=== PATIENT | male | born 1955 | race American Indian/Alaskan Native ===

== ENCOUNTER 2018-08-03 17:07 | Emergency (ER) | payer OTHER ==
[~2018-08-03] VITALS: Ht 167.6 cm; Wt 68.0 kg
[2018-08-03 17:45] LABS: BASOPHILS ABSOLUTE AUTO 0.07 K/mm3 (0.00-0.23); BASOPHILS PERCENT AUTO 1 % (0-2); EOSINOPHILS ABSOLUTE AUTO 0.08 K/mm3 (0.00-0.68); EOSINOPHILS PERCENT AUTO 1 % (0-6); Hematocrit 36.6 % (37.0-53.0); Hemoglobin 12.1 g/dL (13.5-17.5); IMMATURE GRAN PERCENT AUTO 1 % (0-1); LYMPHOCYTES ABSOLUTE AUTO 1.53 K/mm3 (0.84-5.20); LYMPHOCYTES PERCENT AUTO 12 % (21-46); MONOCYTES PERCENT AUTO 11 % (4-13); Mean Corpuscular HGB 31.3 pg (26.0-34.0); Mean Corpuscular HGB Conc 33.1 g/dL (31.5-36.5); Mean Corpuscular Volume 95 fL (80-100); Mean Platelet Volume 12.1 fL (9.1-12.4); NEUTROPHILS ABSOLUTE AUTO 9.92 K/mm3 (1.96-9.15); NEUTROPHILS PERCENT AUTO 75 % (41-73); Platelet Count 206 K/mm3 (150-400); RDW Coefficient Variation 14.4 % (11.7-14.2); RDW Standard Deviation 49.7 fL (35.1-46.3); Red Blood Cell Count 3.86 M/mm3 (4.30-5.90)
[2018-08-03 17:55] LABS: Calcium, Ionized (POC) 1.08 mmol/L (1.10-1.46); Chloride (POC) 99 mmol/L (98-108); Creatinine (POC) 0.9 mg/dL (0.8-1.3); Glucose (ISTAT POC) 105 mg/dL (70-99); Hemoglobin (POC) 11.6 g/dL (13.5-17.5); Potassium (POC) 4.5 mmol/L (3.5-5.5); Sodium (POC) 131 mmol/L (135-148); Total CO2 (POC) 21 mmol/L (21-32)
[2018-08-03 18:04] LABS: Alanine Aminotransfer (ALT/SGP 44 U/L (12-78); Albumin, Blood 2.6 g/dL (3.4-5.0); Albumin/Globulin Ratio 0.6 (0.8-1.8); Alk Phos 94 U/L (50-136); Anion Gap 11 mmol/L (6-16); Aspartate Aminotrans (AST/SGOT 56 U/L (12-37); Bilirubin, Total 0.5 mg/dL (0.1-1.0); Blood Urea Nitrogen 32 mg/dL (8-24); Bun/Creatinine Ratio 36.3 (12.0-20.0); CO2, Blood 19 mmol/L (21-32); Calcium, Blood 8.3 mg/dL (8.5-10.1); Chloride, Blood 100 mmol/L (98-108); Creatinine, Blood 0.88 mg/dL (0.60-1.20); Globulin, Blood 4.5 g/dL (2.2-4.0); Glomerular Filtration Rate >60 (60-); Glucose, Blood 106 mg/dL (70-99); Potassium, Blood 3.9 mmol/L (3.5-5.5); Sodium, Blood 130 mmol/L (136-145); Total Protein, Blood 7.1 g/dL (6.4-8.2)
[2018-08-03 18:38] LABS: International Normalized Ratio 0.94
== END 2018-08-03 18:45 | disposition short-term general hospital (02) ==
LOC: ER 17:07
PROVIDERS: Emergency Medicine; Physician Assistant
DX: I21.3 ST elevation (STEMI) myocardial infarction of unspecified site (principal); F17.200 Nicotine dependence, unspecified, uncomplicated; Z88.6 Allergy status to analgesic agent
CPT/HCPCS: 36415; 80047; 80053; 82272; 83690; 84484; 85014; 85025; 85610; 85730; 93005; 93010; 96361; 96374; 96375; 96376; 99285-25; J1644; J2270; J2405; J7120

== ENCOUNTER 2018-12-01 13:45 | Emergency (ER) | payer OTHER ==
[~2018-12-01] VITALS: Ht 165.1 cm; Wt 66.2 kg
[2018-12-01 14:28] LABS: BASOPHILS ABSOLUTE AUTO 0.06 K/mm3 (0.00-0.23); BASOPHILS PERCENT AUTO 1 % (0-2); EOSINOPHILS ABSOLUTE AUTO 0.09 K/mm3 (0.00-0.68); EOSINOPHILS PERCENT AUTO 1 % (0-6); Hematocrit 41.1 % (37.0-53.0); Hemoglobin 13.7 g/dL (13.5-17.5); IMMATURE GRAN ABSOLUTE AUTO 0.04 K/mm3 (0.00-0.10); IMMATURE GRAN PERCENT AUTO 0 % (0-1); LYMPHOCYTES ABSOLUTE AUTO 1.22 K/mm3 (0.84-5.20); LYMPHOCYTES PERCENT AUTO 12 % (21-46); MONOCYTES ABSOLUTE AUTO 0.76 K/mm3 (0.16-1.47); MONOCYTES PERCENT AUTO 7 % (4-13); Mean Corpuscular HGB 31.8 pg (26.0-34.0); Mean Corpuscular HGB Conc 33.3 g/dL (31.5-36.5); Mean Corpuscular Volume 95 fL (80-100); Mean Platelet Volume 12.2 fL (9.1-12.4); NEUTROPHILS ABSOLUTE AUTO 8.35 K/mm3 (1.96-9.15); NEUTROPHILS PERCENT AUTO 79 % (41-73); Platelet Count 205 K/mm3 (150-400); RDW Coefficient Variation 16.6 % (11.7-14.2); RDW Standard Deviation 57.9 fL (35.1-46.3); Red Blood Cell Count 4.31 M/mm3 (4.30-5.90); White Blood Cell Count 10.52 K/mm3 (4.00-11.30)
[2018-12-01] MEDS ORDERED: Hydrocodone-Ap1 EA23 PO (14:34)
[2018-12-01 15:21] LABS: Albumin, Blood 3.5 g/dL (3.4-5.0); Bilirubin, Total 0.7 mg/dL (0.1-1.0); Bun/Creatinine Ratio 19.6 (12.0-20.0); Creatinine, Blood 1.48 mg/dL (0.60-1.20); Globulin, Blood 3.5 g/dL (2.2-4.0); Potassium, Blood 4.6 mmol/L (3.5-5.5); Troponin I 0.029 ng/mL (0.000-0.040)
[2018-12-01] MEDS ORDERED: Zithromax250 MG PO (15:56)
== END 2018-12-01 16:27 | disposition home or self-care (01) ==
LOC: ER 13:45
PROVIDERS: Physician Assistant
DX: J18.1 Lobar pneumonia, unspecified organism (principal); K29.70 Gastritis, unspecified, without bleeding; Z88.6 Allergy status to analgesic agent; Z79.891 Long term (current) use of opiate analgesic; I25.2 Old myocardial infarction; F17.200 Nicotine dependence, unspecified, uncomplicated
CPT/HCPCS: 71046; 80053; 83605; 83690; 83880; 84484; 85025; 93005; 93010; 99285-25

== ENCOUNTER → 2019-06-07 | Outpatient (CLI) | payer OTHER ==
[~2019-06-07] MED LIST: Hydrocodone-Ap1 EA23 PO; Zithromax250 MG PO
[2019-06-10 13:35] LABS: Stool Occult Bld Immuno 1 Negative (NEGATIVE)
== END | disposition home or self-care (01) ==
LOC: LAB 17:49 → LAB SHORT 17:49
PROVIDERS: Family Medicine
DX: Z12.11 Encounter for screening for malignant neoplasm of colon (principal)
CPT/HCPCS: G0328

== ENCOUNTER 2020-05-31 18:01 | Emergency (ER) | payer OTHER ==
[~2020-05-31] VITALS: Ht 167.6 cm; Wt 63.5 kg
[2020-05-31] MEDS ORDERED: ALLO100 PO (18:21)
[2020-05-31] MEDS ORDERED: CLOP75 PO (18:22)
[2020-05-31] MEDS ORDERED: ATOR20 PO (18:22)
[2020-05-31] MEDS ORDERED: CARV3.125 PO (18:22)
[2020-05-31] MEDS ORDERED: INDO50 PO (18:23)
[2020-05-31] MEDS ORDERED: DICLOFENAC SOD100 GM TP (18:23)
[2020-05-31] MEDS ORDERED: GABA300 PO (18:23)
[2020-05-31] MEDS ORDERED: TORSE20 PO (18:24)
[2020-05-31] MEDS ORDERED: TRAZ50 PO (18:24)
[2020-05-31] MEDS ORDERED: TIOT18 INH (18:24)
[2020-05-31] MEDS ORDERED: NITR.4SL SL (18:24)
[2020-05-31 18:39] LABS: BASOPHILS ABSOLUTE AUTO 0.06 K/mm3 (0.00-0.23); BASOPHILS PERCENT AUTO 1 % (0-2); EOSINOPHILS ABSOLUTE AUTO 0.12 K/mm3 (0.00-0.68); EOSINOPHILS PERCENT AUTO 1 % (0-6); Hematocrit 43.4 % (37.0-53.0); Hemoglobin 14.5 g/dL (13.5-17.5); IMMATURE GRAN ABSOLUTE AUTO 0.05 K/mm3 (0.00-0.10); IMMATURE GRAN PERCENT AUTO 1 % (0-1); LYMPHOCYTES ABSOLUTE AUTO 1.07 K/mm3 (0.84-5.20); LYMPHOCYTES PERCENT AUTO 12 % (21-46); MONOCYTES PERCENT AUTO 9 % (4-13); Mean Corpuscular HGB 32.8 pg (26.0-34.0); Mean Corpuscular HGB Conc 33.4 g/dL (31.5-36.5); Mean Corpuscular Volume 98 fL (80-100); NEUTROPHILS ABSOLUTE AUTO 7.07 K/mm3 (1.96-9.15); NEUTROPHILS PERCENT AUTO 77 % (41-73); Platelet Count 103 K/mm3 (150-400); RDW Standard Deviation 60.5 fL (35.1-46.3); Red Blood Cell Count 4.42 M/mm3 (4.30-5.90); White Blood Cell Count 9.17 K/mm3 (4.00-11.30)
[2020-05-31 18:52] LABS: Albumin, Blood 4.1 g/dL (3.4-5.0); Albumin/Globulin Ratio 1.4 (0.8-1.8); Bilirubin, Total 1.9 mg/dL (0.1-1.0); Bun/Creatinine Ratio 43.2 (12.0-20.0); Calcium, Blood 8.8 mg/dL (8.5-10.1); Creatinine, Blood 1.39 mg/dL (0.60-1.20); Potassium, Blood 4.6 mmol/L (3.5-5.5); Total Protein, Blood 7.1 g/dL (6.4-8.2); Troponin I 0.029 ng/mL (0.000-0.040)
[2020-05-31] MEDS ORDERED: ONDA4ODT MM (20:17)
[2020-05-31] MEDS ORDERED: MECL25 PO (20:17)
== END 2020-05-31 20:33 | disposition home or self-care (01) ==
LOC: ER 18:01
PROVIDERS: Emergency Medicine
DX: H81.399 Other peripheral vertigo, unspecified ear (principal); H81.10 Benign paroxysmal vertigo, unspecified ear; I25.2 Old myocardial infarction; Z88.2 Allergy status to sulfonamides; Z95.5 Presence of coronary angioplasty implant and graft; Z88.6 Allergy status to analgesic agent
CPT/HCPCS: 70450; 80053; 84484; 85025; 93005; 93010; 96374; 99284-25; A9270; J2405

== ENCOUNTER 2021-04-05 18:50 | Inpatient (IN) | payer OTHER ==
[~2021-04-05] VITALS: Ht 162.6 cm; Wt 58.0 kg
[~2021-04-05 18:50] MED LIST changes: -ASCO500 PO; -ATOR40TA PO; -AZIT500 PO; -Acetaminophen650 M1 PO; -BISA10S PR; -CEFD300 PO; -COLCHICINE0.6 MG PO; -Carvedilol6.25 MG PO; -DOCU100 PO; -ENTRESTO 24 MG1 EAC3 PO; -ENTRESTO 24 MG1 EACH PO; -EUTHYROX125 MC1 PO; -FAMO20 PO; -FERSU300 PO; -FURO40 PO; -GUAI600T33 PO; -LACT PO; -LISI20 PO; -MIRALAX17 GM PO; -Nicoderm Cq1 EACH TOP; -PLAVIX75 MG PO; -PROAIR DIGIHAL90 MCG INH; -PROM25 PO; -TAMSULOSIN HCL0.4 M1 PO; -TUSSIN MUC100 MG/5 M PO
[2021-04-05] MEDS ORDERED: COLCHICINE0.6 MG PO (19:17)
[2021-04-05] MEDS ORDERED: FURO40 PO (19:18)
[2021-04-05] MEDS ORDERED: GABA300 PO (19:18)
[2021-04-05] MEDS ORDERED: FERSU300 PO (19:18)
[2021-04-05] MEDS ORDERED: LISI20 PO (19:19)
[2021-04-05] MEDS ORDERED: Nicoderm Cq1 EACH TOP (19:20)
[2021-04-05] MEDS ORDERED: PROAIR DIGIHAL90 MCG INH (19:20)
[2021-04-05] MEDS ORDERED: ENTRESTO 24 MG1 EAC3 PO (19:22)
[2021-04-05 19:28] LABS: BASOPHILS ABSOLUTE AUTO 0.04 K/mm3 (0.00-0.23); BASOPHILS PERCENT AUTO 0 % (0-2); EOSINOPHILS ABSOLUTE AUTO 0.04 K/mm3 (0.00-0.68); EOSINOPHILS PERCENT AUTO 0 % (0-6); Hematocrit 22.5 % (37.0-53.0); Hemoglobin 7.9 g/dL (13.5-17.5); IMMATURE GRAN ABSOLUTE AUTO 0.06 K/mm3 (0.00-0.10); IMMATURE GRAN PERCENT AUTO 0 % (0-1); LYMPHOCYTES ABSOLUTE AUTO 0.65 K/mm3 (0.84-5.20); LYMPHOCYTES PERCENT AUTO 5 % (21-46); MONOCYTES PERCENT AUTO 8 % (4-13); Mean Corpuscular HGB 33.2 pg (26.0-34.0); Mean Corpuscular HGB Conc 35.1 g/dL (31.5-36.5); Mean Corpuscular Volume 95 fL (80-100); Mean Platelet Volume 11.9 fL (9.1-12.4); NEUTROPHILS ABSOLUTE AUTO 12.55 K/mm3 (1.96-9.15); NEUTROPHILS PERCENT AUTO 86 % (41-73); Platelet Count 298 K/mm3 (150-400); RDW Standard Deviation 54.5 fL (35.1-46.3); Red Blood Cell Count 2.38 M/mm3 (4.30-5.90); White Blood Cell Count 14.54 K/mm3 (4.00-11.30)
[2021-04-05 19:50] LABS: Alanine Aminotransfer (ALT/SGP 79 U/L (12-78); Albumin/Globulin Ratio 0.4 (0.8-1.8); Alk Phos 154 U/L (50-136); Anion Gap 9 mmol/L (6-16); Aspartate Aminotrans (AST/SGOT 81 U/L (12-37); Bilirubin, Total 0.6 mg/dL (0.1-1.0); Blood Urea Nitrogen 69 mg/dL (8-24); Bun/Creatinine Ratio 41.3 (12.0-20.0); CO2, Blood 23 mmol/L (21-32); Calcium, Blood 8.8 mg/dL (8.5-10.1); Chloride, Blood 100 mmol/L (98-108); Creatinine, Blood 1.67 mg/dL (0.60-1.20); Globulin, Blood 4.6 g/dL (2.2-4.0); Glomerular Filtration Rate 42 (60-); Glucose, Blood 104 mg/dL (70-99); Potassium, Blood 4.9 mmol/L (3.5-5.5); Sodium, Blood 132 mmol/L (136-145); Total Protein, Blood 6.6 g/dL (6.4-8.2); Troponin I <0.015 ng/mL (0.000-0.040)
[2021-04-05 21:57] LABS: Uric Acid, Blood 5.1 mg/dL (3.5-7.2)
[2021-04-05 22:47] LABS: Influenza A, PCR NEGATIVE (NEGATIVE); Influenza B, PCR NEGATIVE (NEGATIVE); Resp Syncytial Virus, PCR NEGATIVE (NEGATIVE); SARS-Cov-2 (COVID-19) PCR, MMC NEGATIVE (NEGATIVE)
[2021-04-05] MEDS ORDERED: PROM25 PO (23:35)
[2021-04-05] MEDS ORDERED: TAMSULOSIN HCL0.4 M1 PO (23:54)
[2021-04-05] MEDS ORDERED: PLAVIX75 MG PO (23:54)
[2021-04-05] MEDS ORDERED: EUTHYROX125 MC1 PO (23:55)
[2021-04-06 04:50] LABS: BASOPHILS ABSOLUTE AUTO 0.05 K/mm3 (0.00-0.23); BASOPHILS PERCENT AUTO 0 % (0-2); EOSINOPHILS ABSOLUTE AUTO 0.08 K/mm3 (0.00-0.68); EOSINOPHILS PERCENT AUTO 1 % (0-6); Hematocrit 20.3 % (37.0-53.0); Hemoglobin 6.9 g/dL (13.5-17.5); IMMATURE GRAN ABSOLUTE AUTO 0.04 K/mm3 (0.00-0.10); IMMATURE GRAN PERCENT AUTO 0 % (0-1); LYMPHOCYTES ABSOLUTE AUTO 0.69 K/mm3 (0.84-5.20); LYMPHOCYTES PERCENT AUTO 6 % (21-46); MONOCYTES ABSOLUTE AUTO 1.17 K/mm3 (0.16-1.47); MONOCYTES PERCENT AUTO 10 % (4-13); Mean Corpuscular HGB 32.2 pg (26.0-34.0); Mean Corpuscular Volume 95 fL (80-100); Mean Platelet Volume 12.4 fL (9.1-12.4); NEUTROPHILS ABSOLUTE AUTO 9.46 K/mm3 (1.96-9.15); NEUTROPHILS PERCENT AUTO 82 % (41-73); Platelet Count 269 K/mm3 (150-400); RDW Coefficient Variation 15.9 % (11.7-14.2); RDW Standard Deviation 54.4 fL (35.1-46.3); Red Blood Cell Count 2.14 M/mm3 (4.30-5.90); White Blood Cell Count 11.49 K/mm3 (4.00-11.30)
[2021-04-06 05:50] LABS: Albumin, Blood 1.7 g/dL (3.4-5.0); Albumin/Globulin Ratio 0.4 (0.8-1.8); Bilirubin, Total 0.5 mg/dL (0.1-1.0); Calcium, Blood 8.3 mg/dL (8.5-10.1); Creatinine, Blood 1.42 mg/dL (0.60-1.20); Globulin, Blood 4.1 g/dL (2.2-4.0); Magnesium, Blood 2.3 mg/dL (1.6-2.4); Potassium, Blood 4.5 mmol/L (3.5-5.5); Total Protein, Blood 5.8 g/dL (6.4-8.2); Troponin I 0.022 ng/mL (0.000-0.040)
--- NOTE | 2021-04-06 06:11 | NUR ---
SHIFT SUMMARYU PATIENT ADMITTED TO FLOOR AT APROXIMETLY 2245 AND FOUND TO BE A&OX4. SOFT BP SOMEWHAT IMPROVING WITH BOLUS AND MAP HAS STAYED ABOVE 60 SINCE ADMIT. NSR IN THE 80'S ON TELE. RA SATING MID 90'S. PRODUCTIVE COUGH AT TIMES. SOME DIZZINESS UPON STANDING AND BIGGER MOVEMENTS IN BED SO ENCOURAGED PATIENT TO TAKE IT SLOW AND CALL RN BEFORE GETTING UP. POOR APPETITE. VOIDING WELL PER URINAL. IV FLUIDS RUNNING PER ORDER AFTER BOLUS COMPLETED. HGB OF 6.9 THIS AM AND MADE AWARE. ONE PRBC ORDERED AND BEING PREPPED FOR DAYSHIFT. NO SIGNS OF BLEEDING. UP WITH ONE ASSIST. NO ACUTE CONCERNS AT THIS TIME. WILL CONTINUE TO MONITOR UNITL REPORT GIVEN TO DAYSHIFT RN.
--- NOTE | 2021-04-06 18:06 | NUR ---
VSS. AFEBRILE. NO C/O PAIN. AUO. NO BM. POOR APPETITE NOTED. 1 UNIT PRBC TRANSFUSED. IVF MAINTAINED. FREQUENT ROUNDS TO ENSURE PT SAFETY. PT IN NO APPARENT DISTRESS AT THIS TIME. WILL CONTINUE TO MONITOR UNTIL TRANSFER OF CARE TO ONCOMING RN.
[2021-04-07 03:54] LABS: Hematocrit 24.2 % (37.0-53.0); Hemoglobin 8.3 g/dL (13.5-17.5); Mean Corpuscular HGB 32.4 pg (26.0-34.0); Mean Corpuscular HGB Conc 34.3 g/dL (31.5-36.5); Mean Corpuscular Volume 95 fL (80-100); Mean Platelet Volume 12.2 fL (9.1-12.4); Platelet Count 292 K/mm3 (150-400); RDW Coefficient Variation 15.8 % (11.7-14.2); RDW Standard Deviation 53.5 fL (35.1-46.3); Red Blood Cell Count 2.56 M/mm3 (4.30-5.90); White Blood Cell Count 11.73 K/mm3 (4.00-11.30)
[2021-04-07 04:15] LABS: Albumin, Blood 1.8 g/dL (3.4-5.0); Anion Gap 9 mmol/L (6-16); Blood Urea Nitrogen 35 mg/dL (8-24); Bun/Creatinine Ratio 31.5 (12.0-20.0); CO2, Blood 22 mmol/L (21-32); Calcium, Blood 8.9 mg/dL (8.5-10.1); Chloride, Blood 110 mmol/L (98-108); Creatinine, Blood 1.11 mg/dL (0.60-1.20); Glomerular Filtration Rate >60 (60-); Glucose, Blood 83 mg/dL (70-99); Phosphorus, Blood 3.6 mg/dL (2.5-4.9); Potassium, Blood 4.6 mmol/L (3.5-5.5); Sodium, Blood 141 mmol/L (136-145)
--- NOTE | 2021-04-07 05:48 | NUR ---
SHIFT SUMMARY PATIENT IS A PLESANT MAN WHO IS A&OX4, FOLLOWS COMMANDS, WITH SOME GENERALIZED WEAKNESS. VSS. NSR ON THE MONITOR. ON RA SATING LOW 90'S. PRODUCTIVE COUGH IMPROVING. TOLERATING CARDIAC DIET BUT POOR APPETITE. VOIDING WELL PER URINAL. ENCOURAGE ORAL INTAKE.IV ABX RUNNING PER ORDER. SBA IN ROOM. NO ACUTE CONCERNS AT THIS TIME. WILL CONTINUE TO MONITOR UNTIL REPORT GIVEN TO DAYSHIFT.
--- NOTE | 2021-04-07 18:33 | NUR ---
VSS. AFEBRILE. AUO. NO BM. CONTINUES TO HAVE POOR APPETITE. UP IN CHAIR X4HRS, UTILIZED FWW, GAIT BELT WITH 1 PERSON MIN ASSIST. FREQUENT ROUNDS TO ENSURE PT SAFETY. PT IN NO APPARENT DISTRESS AT THIS TIME. WILL CONTINUE TO MONITOR UNTIL TRANSFER OF CARE TO ONCOMING RN.
--- NOTE | 2021-04-07 18:36 | NUR ---
STATUS CHANGE: PT C/O SUDDEN ONSET CP WITH R ARM PAIN. EKG COMPLETED STAT. MD NOTIFIED, ORDERED TROP I STAT AND NITRO PRN. NITRO X1, PT STATED RESOLUTION OF CP. PT ALSO GIVEN TYLENOL X1 D/T R ARM PAIN- PT STATED " I WAS TRYING NOT TO MOVE MY R ARM, IT MAY BE STIFF AND COULD BE CAUSING ALL THIS." VSS.
--- NOTE | 2021-04-07 19:50 | NUR ---
ASSUMED CARE OF PATIENT AT 1900. PATIENT A/OX4. MAINTAINING ABOVE 90% ON RA BUT RESPIRATORY RATE UP TO 26. ADDED 2L NC PRN, SATS INCREASED TO 94% AND RR DOWN TO 18. PATIENT MAINLY SOB WITH ANY ACTIVITY LIKE TALKING, MOVING TO DRINK WATER ETC... NSR ON MONITOR. NO C/O CP. WILL UPDATE THIS NOTE IF ANY CHANGES OCCUR.
[2021-04-08 04:13] LABS: BASOPHILS ABSOLUTE AUTO 0.07 K/mm3 (0.00-0.23); BASOPHILS PERCENT AUTO 1 % (0-2); EOSINOPHILS ABSOLUTE AUTO 0.02 K/mm3 (0.00-0.68); EOSINOPHILS PERCENT AUTO 0 % (0-6); Hematocrit 24.1 % (37.0-53.0); Hemoglobin 8.2 g/dL (13.5-17.5); IMMATURE GRAN ABSOLUTE AUTO 0.05 K/mm3 (0.00-0.10); IMMATURE GRAN PERCENT AUTO 0 % (0-1); LYMPHOCYTES ABSOLUTE AUTO 0.72 K/mm3 (0.84-5.20); LYMPHOCYTES PERCENT AUTO 6 % (21-46); MONOCYTES ABSOLUTE AUTO 0.84 K/mm3 (0.16-1.47); MONOCYTES PERCENT AUTO 6 % (4-13); Mean Corpuscular HGB 32.7 pg (26.0-34.0); Mean Corpuscular Volume 96 fL (80-100); NEUTROPHILS ABSOLUTE AUTO 11.42 K/mm3 (1.96-9.15); NEUTROPHILS PERCENT AUTO 87 % (41-73); Platelet Count 305 K/mm3 (150-400); RDW Coefficient Variation 15.9 % (11.7-14.2); RDW Standard Deviation 55.5 fL (35.1-46.3); Red Blood Cell Count 2.51 M/mm3 (4.30-5.90); White Blood Cell Count 13.12 K/mm3 (4.00-11.30)
[2021-04-08 04:42] LABS: Albumin, Blood 1.9 g/dL (3.4-5.0); Albumin/Globulin Ratio 0.4 (0.8-1.8); Bilirubin, Direct 0.4 mg/dL (0.0-0.3); Bilirubin, Indirect 0.3 mg/dL (0.1-0.7); Bilirubin, Total 0.7 mg/dL (0.1-1.0); Bun/Creatinine Ratio 34.1 (12.0-20.0); C-REACTIVE PROTEIN, EXT RANGE 16.8 mg/dL (0.000-0.300); Calcium, Blood 8.7 mg/dL (8.5-10.1); Creatinine, Blood 1.23 mg/dL (0.60-1.20); Globulin, Blood 4.3 g/dL (2.2-4.0); Magnesium, Blood 2.4 mg/dL (1.6-2.4); Phosphorus, Blood 5.5 mg/dL (2.5-4.9); Potassium, Blood 4.7 mmol/L (3.5-5.5); Total Protein, Blood 6.2 g/dL (6.4-8.2)
[2021-04-08 12:36] LABS: BASOPHILS ABSOLUTE AUTO 0.06 K/mm3 (0.00-0.23); BASOPHILS PERCENT AUTO 1 % (0-2); EOSINOPHILS ABSOLUTE AUTO 0.09 K/mm3 (0.00-0.68); EOSINOPHILS PERCENT AUTO 1 % (0-6); Hematocrit 24.7 % (37.0-53.0); Hemoglobin 8.4 g/dL (13.5-17.5); IMMATURE GRAN ABSOLUTE AUTO 0.07 K/mm3 (0.00-0.10); IMMATURE GRAN PERCENT AUTO 1 % (0-1); LYMPHOCYTES ABSOLUTE AUTO 0.73 K/mm3 (0.84-5.20); LYMPHOCYTES PERCENT AUTO 6 % (21-46); MONOCYTES ABSOLUTE AUTO 0.86 K/mm3 (0.16-1.47); MONOCYTES PERCENT AUTO 8 % (4-13); Mean Corpuscular HGB 32.6 pg (26.0-34.0); Mean Corpuscular Volume 96 fL (80-100); NEUTROPHILS ABSOLUTE AUTO 9.71 K/mm3 (1.96-9.15); NEUTROPHILS PERCENT AUTO 84 % (41-73); Platelet Count 320 K/mm3 (150-400); RDW Standard Deviation 55.1 fL (35.1-46.3); Red Blood Cell Count 2.58 M/mm3 (4.30-5.90); White Blood Cell Count 11.52 K/mm3 (4.00-11.30)
[2021-04-08 13:03] LABS: Alanine Aminotransfer (ALT/SGP 36 U/L (12-78); Albumin, Blood 1.8 g/dL (3.4-5.0); Albumin/Globulin Ratio 0.4 (0.8-1.8); Alk Phos 125 U/L (50-136); Anion Gap 9 mmol/L (6-16); Aspartate Aminotrans (AST/SGOT 21 U/L (12-37); Bilirubin, Total 0.5 mg/dL (0.1-1.0); Blood Urea Nitrogen 42 mg/dL (8-24); Bun/Creatinine Ratio 38.2 (12.0-20.0); CO2, Blood 20 mmol/L (21-32); Calcium, Blood 8.8 mg/dL (8.5-10.1); Chloride, Blood 110 mmol/L (98-108); Globulin, Blood 4.4 g/dL (2.2-4.0); Glomerular Filtration Rate >60 (60-); Glucose, Blood 111 mg/dL (70-99); Potassium, Blood 4.7 mmol/L (3.5-5.5); Sodium, Blood 139 mmol/L (136-145); Total Protein, Blood 6.2 g/dL (6.4-8.2); Troponin I 0.166 ng/mL (0.000-0.040)
--- NOTE | 2021-04-08 18:39 | NUR ---
PT BP HAS IMPROVED DURING THIS SHIFT, VSS. PT REPORTS GOO IMPROVEMENT OF BREATHING. PT ABLE TO REPOSITION SELF IN BED W/O DIFF. PT UP WITH AIDES TODAY FOR SMALL WALK IN ROOM. 125ML/HR NS INFUSING AT THIS TIME. PT WITH GOOD APPETITE. PT DENIES CP OR SOB. REAMINS ON RA
--- NOTE | 2021-04-08 22:00 | NUR ---
ASSUMED CARE OF PATIENT AT 1900. A/OX3-4. MAINTAINING BETWEEN 90-95% ON RA, DIM T/O. DYSPNEA WITH ANY KIND OF EXERTION, WHERE RR INCREASES TO 28. PRODUCTIVE COUGH PRODUCING MODERATE AMOUNTS OF THICK MEMBRENO SPUTUM. WITH TAKING HIS ORAL MEDICATION, WITH EACH DRINK HE NEEDS A FEW MINUTES TO RECOVER AND CAN BE FOUND TRIPODDING IN BED TO CATCH HIS BREATH. WILL UPDATE THIS WITH ANY CHANGES THIS SHIFT.
[2021-04-09 03:45] LABS: BASOPHILS ABSOLUTE AUTO 0.07 K/mm3 (0.00-0.23); BASOPHILS PERCENT AUTO 1 % (0-2); EOSINOPHILS ABSOLUTE AUTO 0.06 K/mm3 (0.00-0.68); EOSINOPHILS PERCENT AUTO 1 % (0-6); Hematocrit 22.8 % (37.0-53.0); Hemoglobin 7.7 g/dL (13.5-17.5); IMMATURE GRAN ABSOLUTE AUTO 0.04 K/mm3 (0.00-0.10); IMMATURE GRAN PERCENT AUTO 0 % (0-1); LYMPHOCYTES ABSOLUTE AUTO 0.82 K/mm3 (0.84-5.20); LYMPHOCYTES PERCENT AUTO 6 % (21-46); MONOCYTES ABSOLUTE AUTO 0.84 K/mm3 (0.16-1.47); MONOCYTES PERCENT AUTO 7 % (4-13); Mean Corpuscular HGB 32.4 pg (26.0-34.0); Mean Corpuscular HGB Conc 33.8 g/dL (31.5-36.5); Mean Corpuscular Volume 96 fL (80-100); Mean Platelet Volume 12.1 fL (9.1-12.4); NEUTROPHILS ABSOLUTE AUTO 11.19 K/mm3 (1.96-9.15); NEUTROPHILS PERCENT AUTO 86 % (41-73); Platelet Count 321 K/mm3 (150-400); RDW Standard Deviation 54.8 fL (35.1-46.3); Red Blood Cell Count 2.38 M/mm3 (4.30-5.90); White Blood Cell Count 13.02 K/mm3 (4.00-11.30)
[2021-04-09 04:07] LABS: Alanine Aminotransfer (ALT/SGP 34 U/L (12-78); Albumin, Blood 1.8 g/dL (3.4-5.0); Albumin/Globulin Ratio 0.4 (0.8-1.8); Alk Phos 133 U/L (50-136); Anion Gap 9 mmol/L (6-16); Aspartate Aminotrans (AST/SGOT 27 U/L (12-37); Bilirubin, Total 0.5 mg/dL (0.1-1.0); Blood Urea Nitrogen 40 mg/dL (8-24); Bun/Creatinine Ratio 38.5 (12.0-20.0); CO2, Blood 19 mmol/L (21-32); Calcium, Blood 8.6 mg/dL (8.5-10.1); Chloride, Blood 114 mmol/L (98-108); Creatinine, Blood 1.04 mg/dL (0.60-1.20); Glomerular Filtration Rate >60 (60-); Glucose, Blood 101 mg/dL (70-99); Potassium, Blood 4.9 mmol/L (3.5-5.5); Sodium, Blood 142 mmol/L (136-145); Total Protein, Blood 5.8 g/dL (6.4-8.2)
--- NOTE | 2021-04-09 13:28 | NUR ---
ASSUMED CARE OF PATIENT UPON HIS TRANSFER FROM PCU 15. A&O X 4, PLEASANT. DENIES PAIN. ON ROOM AIR, LUNGS DIMINISHED THROUGHOUT, NO COUGHING NOTED. SITTING ON EDGE OF BED, IN NAD. ORIENTED TO CALL LIGHT, ROOM, AND INTRODUCED TO STAFF. NO RECENT FALLS.
--- NOTE | 2021-04-09 13:34 | NUR ---
BRENDA NOTE ASSUMED CARE OF PATEINT AT APPROC 0700. PT CALM AND COOPERATIVE WITH CARE. PT A&O; CALM AND COOPERATIVE WITH CARE. PT UP IN CHAIR DURING SHIFT, WITH SBA. PT DENIES PAIN, CHEST PAIN, NAUSEA, AND DIZZINESS. PT SOB WITH EXERTION AND COUGHING; SPO2 >90% ON RA. NO BM NOTED SINCE 04/04; NOTIFIED DR RICO, NEW ORDERS FOR COLACE, SENNA AND MIRALAX. VSS. NO OTHER ACUTE CHANGES. REPORT GIVEN TO ZARIA BOWLING ASSUMING CARE OF PATIENT. PT TRANSFERED TO ROOM 354 AT APPROX 1320.
--- NOTE | 2021-04-09 18:04 | NUR ---
SHIFT SUMMARY: PT'S MOM AND SISTER (FROM [place]) VISITED THIS EVENING, NOTICED THAT PT WAS HAVING INCREASED WOB AND COULDN'T GET COMFORTABLE. MEASURED VS: 108/81, 111, O2 SAT 95% ON RA. BREATH SOUNDS DIM THROUGHOUT. PLACED O2 @ 2 L/MIN NC HIS H/H IS 7.7/22. SPOKE TO DR. RICO BY PHONE TO REPORT SXS; IVF STOPPED FOR THE NIGHT AND LASIX 10 MG IV GIVEN. EDUCATED PT AND FAMILY ABOUT RELATIONSHIP BETWEEN HGB AND OXYGEN, AND IVF AND HEART FAILURE, TO WHICH THEY VERBALIZED UNDERSTANDING. DENIED CHEST PAIN, BUT IS HAVING LOW BACK PAIN D/T BEING IN BED. APPETITE IS POOR, ENCOURAGED HIM TO EAT MORE PROTEIN. HAD BM TODAY WITHOUT MEDICATIONS. HIGH FALL RISK, BED ALARM ON, PT EDUCATED TO CALL BEFORE GETTING UP.
--- NOTE | 2021-04-10 04:16 | NUR ---
PATIENT IS ALERT AND ORIENTED X4,TELEMENTARY SHOWS PATIENT TO BE SINUS TACHY. PATIENT IS 2L OF OXYGEN, PATIENT HAS SOB EARIER IN THE SHIFT BUT AFTER RECEIVING A BREATHING TREATMENT PATIENT NOT LONGER HAD SOB AND HAD AN O2 SATURATION OF A 100%. PATIENT WOKEUP FOR A LITTLE BIT BUT WENT BACK TO SLEEP
[2021-04-10 05:07] LABS: BASOPHILS ABSOLUTE AUTO 0.05 K/mm3 (0.00-0.23); BASOPHILS PERCENT AUTO 0 % (0-2); EOSINOPHILS ABSOLUTE AUTO 0.01 K/mm3 (0.00-0.68); EOSINOPHILS PERCENT AUTO 0 % (0-6); Hemoglobin 7.5 g/dL (13.5-17.5); IMMATURE GRAN ABSOLUTE AUTO 0.12 K/mm3 (0.00-0.10); IMMATURE GRAN PERCENT AUTO 1 % (0-1); LYMPHOCYTES ABSOLUTE AUTO 0.81 K/mm3 (0.84-5.20); LYMPHOCYTES PERCENT AUTO 7 % (21-46); MONOCYTES ABSOLUTE AUTO 0.87 K/mm3 (0.16-1.47); MONOCYTES PERCENT AUTO 7 % (4-13); Mean Corpuscular HGB 32.3 pg (26.0-34.0); Mean Corpuscular HGB Conc 32.6 g/dL (31.5-36.5); Mean Corpuscular Volume 99 fL (80-100); Mean Platelet Volume 12.1 fL (9.1-12.4); NEUTROPHILS ABSOLUTE AUTO 10.61 K/mm3 (1.96-9.15); NEUTROPHILS PERCENT AUTO 85 % (41-73); Platelet Count 294 K/mm3 (150-400); RDW Coefficient Variation 16.4 % (11.7-14.2); RDW Standard Deviation 57.4 fL (35.1-46.3); Red Blood Cell Count 2.32 M/mm3 (4.30-5.90); White Blood Cell Count 12.47 K/mm3 (4.00-11.30)
[2021-04-10 05:47] LABS: Alanine Aminotransfer (ALT/SGP 227 U/L (12-78); Albumin, Blood 1.8 g/dL (3.4-5.0); Albumin/Globulin Ratio 0.5 (0.8-1.8); Alk Phos 188 U/L (50-136); Anion Gap 10 mmol/L (6-16); Aspartate Aminotrans (AST/SGOT 416 U/L (12-37); Bilirubin, Total 0.5 mg/dL (0.1-1.0); Blood Urea Nitrogen 43 mg/dL (8-24); Bun/Creatinine Ratio 37.7 (12.0-20.0); CO2, Blood 17 mmol/L (21-32); Calcium, Blood 8.3 mg/dL (8.5-10.1); Chloride, Blood 115 mmol/L (98-108); Creatinine, Blood 1.14 mg/dL (0.60-1.20); Globulin, Blood 3.4 g/dL (2.2-4.0); Glomerular Filtration Rate >60 (60-); Glucose, Blood 110 mg/dL (70-99); Magnesium, Blood 2.4 mg/dL (1.6-2.4); Phosphorus, Blood 4.5 mg/dL (2.5-4.9); Potassium, Blood 5.1 mmol/L (3.5-5.5); Sodium, Blood 142 mmol/L (136-145); Total Protein, Blood 5.2 g/dL (6.4-8.2)
[2021-04-10] MEDS ORDERED: ATOR40TA PO (12:28)
[2021-04-10] MEDS ORDERED: Acetaminophen650 M1 PO (12:28)
[2021-04-10] MEDS ORDERED: AZIT500 PO (12:38)
[2021-04-10] MEDS ORDERED: BISA10S PR (12:38)
[2021-04-10] MEDS ORDERED: Carvedilol6.25 MG PO (12:40)
[2021-04-10] MEDS ORDERED: CEFD300 PO (12:40)
[2021-04-10] MEDS ORDERED: DOCU100 PO (12:41)
[2021-04-10] MEDS ORDERED: TUSSIN MUC100 MG/5 M PO (12:41)
[2021-04-10] MEDS ORDERED: MECL25 PO (12:42)
[2021-04-10] MEDS ORDERED: GUAI600T33 PO (12:42)
[2021-04-10] MEDS ORDERED: FAMO20 PO (12:42)
[2021-04-10] MEDS ORDERED: NITR.4SL SL (12:43)
[2021-04-10] MEDS ORDERED: ENTRESTO 24 MG1 EACH PO (12:44)
[2021-04-10] MEDS ORDERED: MIRALAX17 GM PO (12:44)
[2021-04-10] MEDS ORDERED: ONDA4ODT MM (12:44)
[2021-04-10] MEDS ORDERED: LACT PO (12:45)
--- NOTE | 2021-04-10 17:25 | NUR ---
SHIFT SUMMARY PT IS AOX4. PT DENIES PAIN, N/V. PT MEDICATED WITH BREATHING TREATMENTS FOR SOB. PT IS RA OR 2 L O2 VIA NC PRN SOB. PT HAD CXR THIS AM AND ABD US THIS JULIUS. PT APPETITE IS POOR TO MODERATE. PT IS ONE ASSIST IN ROOM AND WORKED WITH PT. PT HAD A VISITOR THIS JULIUS. BP SLIGHTLY LOW, BUT PROVIDER AWARE. PT IS IN BED, CALL LIGHT IN REACH, LOW POSITION.
[2021-04-11 05:22] LABS: BASOPHILS ABSOLUTE AUTO 0.08 K/mm3 (0.00-0.23); BASOPHILS PERCENT AUTO 1 % (0-2); EOSINOPHILS ABSOLUTE AUTO 0.22 K/mm3 (0.00-0.68); EOSINOPHILS PERCENT AUTO 2 % (0-6); Hematocrit 25.6 % (37.0-53.0); Hemoglobin 8.4 g/dL (13.5-17.5); IMMATURE GRAN ABSOLUTE AUTO 0.11 K/mm3 (0.00-0.10); IMMATURE GRAN PERCENT AUTO 1 % (0-1); LYMPHOCYTES ABSOLUTE AUTO 0.93 K/mm3 (0.84-5.20); LYMPHOCYTES PERCENT AUTO 7 % (21-46); MONOCYTES ABSOLUTE AUTO 0.87 K/mm3 (0.16-1.47); MONOCYTES PERCENT AUTO 7 % (4-13); Mean Corpuscular HGB 32.8 pg (26.0-34.0); Mean Corpuscular HGB Conc 32.8 g/dL (31.5-36.5); Mean Corpuscular Volume 100 fL (80-100); Mean Platelet Volume 12.3 fL (9.1-12.4); NEUTROPHILS ABSOLUTE AUTO 10.48 K/mm3 (1.96-9.15); NEUTROPHILS PERCENT AUTO 83 % (41-73); Platelet Count 319 K/mm3 (150-400); RDW Standard Deviation 59.2 fL (35.1-46.3); Red Blood Cell Count 2.56 M/mm3 (4.30-5.90); White Blood Cell Count 12.69 K/mm3 (4.00-11.30)
[2021-04-11 06:51] LABS: Alanine Aminotransfer (ALT/SGP 212 U/L (12-78); Albumin, Blood 1.9 g/dL (3.4-5.0); Albumin/Globulin Ratio 0.5 (0.8-1.8); Alk Phos 175 U/L (50-136); Anion Gap 12 mmol/L (6-16); Aspartate Aminotrans (AST/SGOT 220 U/L (12-37); Bilirubin, Total 0.5 mg/dL (0.1-1.0); Blood Urea Nitrogen 39 mg/dL (8-24); Bun/Creatinine Ratio 35.8 (12.0-20.0); CO2, Blood 18 mmol/L (21-32); Calcium, Blood 8.7 mg/dL (8.5-10.1); Chloride, Blood 112 mmol/L (98-108); Creatinine, Blood 1.09 mg/dL (0.60-1.20); Globulin, Blood 3.6 g/dL (2.2-4.0); Glomerular Filtration Rate >60 (60-); Glucose, Blood 80 mg/dL (70-99); Magnesium, Blood 2.5 mg/dL (1.6-2.4); Phosphorus, Blood 3.9 mg/dL (2.5-4.9); Potassium, Blood 4.9 mmol/L (3.5-5.5); Sodium, Blood 142 mmol/L (136-145); Total Protein, Blood 5.5 g/dL (6.4-8.2)
--- NOTE | 2021-04-11 06:56 | NUR ---
PATIENT WAS ALERT AND ORIENTED X3 AND REQUIRED A BREATHING TREATMENT DUE TO SOB. RT PROVIDED BREATHING TREAMENT, PATIENT TOOK EVENING MEDS AND WENT TO SLEEP. VITAL SIGN WHERE STABLE, NO ACUTE CHANGES. PATIENT WOKE AROUND 4AM AND HAS BEEN UP SINCE THEN
[2021-04-11 07:11] LABS: HBSAG SCREEN Negative (Negative); HEP A AB, IGM Negative (Negative); HEP B CORE AB, IGM Negative (Negative); HEP C VIRUS AB >11.0 (0.0-0.9)
--- NOTE | 2021-04-11 16:55 | NUR ---
PATIENT IS ALERT AND ORIENTED X4. PATIENT DENIES PAIN, NAUSEA, VOMITTING OR SOB. PATIENT HAS BEEN ON 2 LITER ENTIRE SHIFT. NO ACUTE EVENTS THIS SHIFT. PATIENT IS A ONE PERSON ASSIST TO BEDSIDE COMMODE. PATIENT WORKED WITH PT/OT TODAY WITH MODERATE SUCCESS. PATIENTS BP IS LOW BUT ASYMPTOMATIC. VITAL SIGNS REVIEWED. CALL LIGHT IN REACH. WILL MONITOR UNTIL SHIFT CHANGE.
--- NOTE | 2021-04-12 04:48 | NUR ---
SHIFT SUMMARY PATIENT WAS ALERT AND ORIENTED X3 AND A BIT SLEEP AT THE BEGINING OF THE SHIFT AND HAD A BP OF 85/58 BUT AFTER A BOLUS OF 1000ML HIS BP WENT UP 95/64. PATIENT SLEPT FOR MOST OF THE SHIFT AND DENIES OF ANY PAIN
[2021-04-12 05:37] LABS: BASOPHILS ABSOLUTE AUTO 0.05 K/mm3 (0.00-0.23); BASOPHILS PERCENT AUTO 1 % (0-2); EOSINOPHILS ABSOLUTE AUTO 0.23 K/mm3 (0.00-0.68); EOSINOPHILS PERCENT AUTO 3 % (0-6); Hematocrit 20.9 % (37.0-53.0); IMMATURE GRAN ABSOLUTE AUTO 0.07 K/mm3 (0.00-0.10); IMMATURE GRAN PERCENT AUTO 1 % (0-1); LYMPHOCYTES ABSOLUTE AUTO 0.88 K/mm3 (0.84-5.20); LYMPHOCYTES PERCENT AUTO 10 % (21-46); MONOCYTES ABSOLUTE AUTO 0.81 K/mm3 (0.16-1.47); MONOCYTES PERCENT AUTO 9 % (4-13); Mean Corpuscular HGB 33.2 pg (26.0-34.0); Mean Corpuscular HGB Conc 33.5 g/dL (31.5-36.5); Mean Corpuscular Volume 99 fL (80-100); Mean Platelet Volume 12.2 fL (9.1-12.4); NEUTROPHILS PERCENT AUTO 78 % (41-73); NRBC ABSOLUTE 0.02 K/mm3 (0.00-0.02); NRBC Auto 0.2 /100 WBC (0.0-0.2); Platelet Count 275 K/mm3 (150-400); RDW Standard Deviation 57.7 fL (35.1-46.3); Red Blood Cell Count 2.11 M/mm3 (4.30-5.90); White Blood Cell Count 9.24 K/mm3 (4.00-11.30)
[2021-04-12 06:35] LABS: Alanine Aminotransfer (ALT/SGP 146 U/L (12-78); Albumin, Blood 1.5 g/dL (3.4-5.0); Albumin/Globulin Ratio 0.5 (0.8-1.8); Alk Phos 137 U/L (50-136); Anion Gap 10 mmol/L (6-16); Aspartate Aminotrans (AST/SGOT 100 U/L (12-37); Bilirubin, Total 0.4 mg/dL (0.1-1.0); Blood Urea Nitrogen 29 mg/dL (8-24); Bun/Creatinine Ratio 32.3 (12.0-20.0); CO2, Blood 17 mmol/L (21-32); Calcium, Blood 8.3 mg/dL (8.5-10.1); Chloride, Blood 117 mmol/L (98-108); Globulin, Blood 3.2 g/dL (2.2-4.0); Glomerular Filtration Rate >60 (60-); Glucose, Blood 80 mg/dL (70-99); Potassium, Blood 4.5 mmol/L (3.5-5.5); Sodium, Blood 144 mmol/L (136-145); Total Protein, Blood 4.7 g/dL (6.4-8.2)
[2021-04-12] MEDS ORDERED: ASCO500 PO (10:18)
--- NOTE | 2021-04-12 11:05 | NUR ---
ATTEMPTED TO CALL AND SCHEDULE AN APPOINTMENT WITH ONCOLOGY OUTPATIENT, PER OFFICE PT NEEDS BIOPSY AND PET SCAN FOR A DIAGNOSIS PRIOR TO GETTING AN APPT. PCP DR DONNELLY OFFICE NOTIFIED OF THIS, APPT MADE WITH PCP. ISTRATE UPDATED.
[2021-04-12 15:12] LABS: Hematocrit 28.9 % (37.0-53.0); Hemoglobin 9.5 g/dL (13.5-17.5)
[2021-04-12 15:33] LABS: International Normalized Ratio 1.11; Prothrombin Time Results 11.6 Sec (9.7-11.5)
--- NOTE | 2021-04-12 16:19 | NUR ---
DISCHARGE SUMMARY PATIENT IS ALERT AND ORIENTED X3-4. PATIENT RECEIVED A UNIT OF RBC TODAY AND TOLERATED WELL. PATIENTS HGB LINDSAY FROM 7.0-9.5 AFTER RECEIVING A UNIT OF BLOOD. NO OTHER ACUTE EVENTS THIS SHIFT. VITAL SIGNS REVIEWED. PATIENT AND FAMILY VERBALLY UNDERSTOOD THE DISCHARGE INSTRUCTIONS. PATIENT WAS WHEELED OUT BY NADER POPE TO PATIENTS FAMILY CAR.
--- NOTE | 2021-04-13 11:20 | NUR ---
Received referral from nurse progressive care nurse (Shantell Martinez) on 04/12/2021. Patient was to discharge with orders for home health and elected [facility]. However, upon discharge, hospitalist (Dr. Cantu) did not write home health orders upon discharge. Notified nurse progressive care nurse of the above. This health science writer contacted patient's PCP- [facility] (Dr. Barrett) and spoke with brick sorter ([place]) regarding the above. Per brick sorter, she will send a phone note to PCP's team and ask for referral to be made to [facility]. No further interventions required. Paris Bowden Referral Liaison
== END 2021-04-12 17:35 | disposition home or self-care (01) | DRG 871 ==
LOC: ER 18:50 → PCU 21:29 → MEDS 21:29 → PCU 23:10 → MEDS 04-09 13:14
PROVIDERS: Emergency Medicine; Internal Medicine; Student in an Organized Health Care Education/Training Program; ADMIT Family Medicine
PROC: 30233N1 Transfusion of Nonautologous Red Blood Cells into Peripheral Vein, Percutaneous Approach (ICD-10-PCS; principal; 2021-04-12)
DX: A41.9 Sepsis, unspecified organism (principal); J18.9 Pneumonia, unspecified organism; I21.A1 Myocardial infarction type 2; J96.21 Acute and chronic respiratory failure with hypoxia; I50.23 Acute on chronic systolic (congestive) heart failure; E87.1 Hypo-osmolality and hyponatremia; N17.9 Acute kidney failure, unspecified; Z68.1 Body mass index [BMI] 19.9 or less, adult; Z20.822 Contact with and (suspected) exposure to COVID-19; I11.0 Hypertensive heart disease with heart failure; R74.01 Elevation of levels of liver transaminase levels; I25.10 Atherosclerotic heart disease of native coronary artery without angina pectoris; J43.2 Centrilobular emphysema; G89.29 Other chronic pain; M1A.9XX0 Chronic gout, unspecified, without tophus (tophi); R63.4 Abnormal weight loss; Z88.6 Allergy status to analgesic agent; Z95.5 Presence of coronary angioplasty implant and graft; I25.2 Old myocardial infarction; Z95.0 Presence of cardiac pacemaker; Z98.890 Other specified postprocedural states; Z79.899 Other long term (current) drug therapy; Z79.02 Long term (current) use of antithrombotics/antiplatelets
CPT/HCPCS: 0241U; 36415; 36416; 36430; 71046; 71250; 76705; 80053; 80069; 80074; 82105; 82248; 83605; 83690; 83735; 84100; 84145; 84484; 84550; 85014; 85018; 85025; 85027; 85610; 85651; 86140; 86850; 86900; 86901; 86923; 87040; 93005; 93010; 94640; 94664; 94760; 94761; 96365; 96367; 97110; 97116; 97162; 97166; 97530; 99285-25; A9270; J0456; J0696; J1650; J1940; J7030; J7050; P9016

== ENCOUNTER → 2021-04-05 | Outpatient (CLI) | payer OTHER ==
[~2021-04-05] MED LIST changes: +ALLO100 PO; +ASCO500 PO; +ATOR20 PO; +ATOR40TA PO; +AZIT500 PO; +Acetaminophen650 M1 PO; +BISA10S PR; +CARV3.125 PO; +CEFD300 PO; +CLOP75 PO; +COLCHICINE0.6 MG PO; +Carvedilol6.25 MG PO; +DICLOFENAC SOD100 GM TP; +DOCU100 PO; +ENTRESTO 24 MG1 EAC3 PO; +ENTRESTO 24 MG1 EACH PO; +EUTHYROX125 MC1 PO; +FAMO20 PO; +FERSU300 PO; +FURO40 PO; +GABA300 PO; +GUAI600T33 PO; +INDO50 PO; +LACT PO; +LISI20 PO; +MECL25 PO; +MIRALAX17 GM PO; +NITR.4SL SL; +Nicoderm Cq1 EACH TOP; +ONDA4ODT MM; +PLAVIX75 MG PO; +PROAIR DIGIHAL90 MCG INH; +PROM25 PO; +TAMSULOSIN HCL0.4 M1 PO; +TIOT18 INH; +TORSE20 PO; +TRAZ50 PO; +TUSSIN MUC100 MG/5 M PO
[2021-04-05 16:57] LABS: BASOPHILS ABSOLUTE AUTO 0.08 K/mm3 (0.00-0.23); BASOPHILS PERCENT AUTO 1 % (0-2); EOSINOPHILS ABSOLUTE AUTO 0.04 K/mm3 (0.00-0.68); EOSINOPHILS PERCENT AUTO 0 % (0-6); Hematocrit 23.6 % (37.0-53.0); Hemoglobin 8.1 g/dL (13.5-17.5); IMMATURE GRAN ABSOLUTE AUTO 0.06 K/mm3 (0.00-0.10); IMMATURE GRAN PERCENT AUTO 0 % (0-1); LYMPHOCYTES ABSOLUTE AUTO 0.61 K/mm3 (0.84-5.20); LYMPHOCYTES PERCENT AUTO 4 % (21-46); MONOCYTES ABSOLUTE AUTO 1.13 K/mm3 (0.16-1.47); MONOCYTES PERCENT AUTO 8 % (4-13); Mean Corpuscular HGB 31.9 pg (26.0-34.0); Mean Corpuscular HGB Conc 34.3 g/dL (31.5-36.5); Mean Corpuscular Volume 93 fL (80-100); Mean Platelet Volume 11.9 fL (9.1-12.4); NEUTROPHILS ABSOLUTE AUTO 11.88 K/mm3 (1.96-9.15); NEUTROPHILS PERCENT AUTO 86 % (41-73); Platelet Count 284 K/mm3 (150-400); RDW Coefficient Variation 15.9 % (11.7-14.2); RDW Standard Deviation 53.7 fL (35.1-46.3); Red Blood Cell Count 2.54 M/mm3 (4.30-5.90)
[2021-04-05 17:24] LABS: Alanine Aminotransfer (ALT/SGP 84 U/L (12-78); Albumin, Blood 2.4 g/dL (3.4-5.0); Albumin/Globulin Ratio 0.7 (0.8-1.8); Alk Phos 177 U/L (40-126); Anion Gap 10 mmol/L (6-16); Aspartate Aminotrans (AST/SGOT 85 U/L (12-37); Bilirubin, Total 0.6 mg/dL (0.1-1.0); Blood Urea Nitrogen 67 mg/dL (8-24); Bun/Creatinine Ratio 35.8 (12.0-20.0); CO2, Blood 26 mmol/L (21-32); Calcium, Blood 8.7 mg/dL (8.5-10.1); Chloride, Blood 98 mmol/L (98-108); Creatinine, Blood 1.87 mg/dL (0.60-1.20); Globulin, Blood 3.6 g/dL (2.2-4.0); Glomerular Filtration Rate 37 (60-); Glucose, Blood 111 mg/dL (70-99); Potassium, Blood 5.5 mmol/L (3.5-5.5); Sodium, Blood 134 mmol/L (136-145); Thyroid Stimulating Hormone 2.114 uIU/mL (0.360-4.800)
[2021-04-05 18:11] LABS: Troponin I <0.017 ng/mL (0.000-0.040)
== END ==
LOC: PLD 16:53 → LAB SHORT 16:53
PROVIDERS: Physician Assistant Medical
DX: R09.02 Hypoxemia (principal); R53.83 Other fatigue
CPT/HCPCS: 80053; 83880; 84443; 84484; 85025